=== PATIENT | female | born 1970 | race Two or more races ===

== ENCOUNTER → 2017-04-21 | Outpatient (CLI) | payer OTHER ==
--- NOTE | ~2017-04-21 | MY11 ---
[facility] A Service of [facility] RADIOLOGY TEXT RESULTS PATIENT: SHE BOATENG LOCATION: [facility] : 72 UNIT #: [id number] AGE: [address]: Harsh Grewal MD SEX: F ORDER DR: [id number] [address] [address] [id number] MR#: [id number] Acc #: [id number] NAME: SHE BOATENG : 1970 SEX: F STUDY DATE/TIME: 04/21/2017 12:40 UNIT: [facility] ROOM: STUDY DESCRIPTION: MY Mammogram Screening Dig Anjum Attending Physician: Harsh Grewal M.D. Referring Physician: Harsh Grewal M.D. Ordering Physician: Harsh Grewal M.D. Primary Care Physician: Harsh Grewal M.D. MEDICAL IMAGING REPORT This report is preliminary unless electronic signature is present. EXAM Digital screening mammogram, 04/21/2017 HISTORY 46-year-old woman baseline mammogram. No risk elevation. COMPARISON None FINDINGS Digital imaging of each breast was completed utilizing a two-view examination of each breast in craniocaudal and mediolateral-oblique projections. Review and interpretation of digital mammograms include a second review in conjunction with FDA-approved CAD device. There is a normal parenchymal presentation bilaterally consistent with the patient's age. There are no breast masses imaged and no parenchymal asymmetry is visualized. There are no suspicious microcalcifications and I see no focal architectural disturbance. IMPRESSION Negative screening digital mammogram. One-year followup recommended. Patients over the age of 40 are entered into a reminder system with target due date for the next mammogram. A result letter will also be sent to the patient. BIRADS: 1 Negative ADDENDUM Breast parenchyma is fatty replaced. Dictated by... [facility] A Service [facility] RADIOLOGY TEXT RESULTS PATIENT: SHE BOATENG LOCATION: [facility] : 72 UNIT #: [id number] AGE: [address]: Harsh Grewal MD SEX: F ORDER DR: Adrian Kam M.D. THIS IS AN ELECTRONICALLY VERIFIED REPORT Adrian Kam M.D. at 04/22/2017 8:02 AM Portia TD: 04/21/2017 17:15 JOB #: [id number] MEDICAL IMAGING REPORT Page 1 of 1
== END | disposition home or self-care (01) ==
LOC: SMAM 11:58
DX: Z12.31 Encounter for screening mammogram for malignant neoplasm of breast (principal)
CPT/HCPCS: G0202